=== PATIENT | female | born 1970 | race Caucasian/White ===

== ENCOUNTER 2020-01-28 07:33 | Day surgery (SDC) | payer OTHER ==
[~2020-01-28 07:33] MED LIST: ATORVASTATIN CA40 MG PO; CARVEDILOL12.5 MG PO; COZAAR50 MG PO; GLIPIZIDE5 MG PO; METFORMIN HCL500 MG PO
== END 2020-01-28 12:00 | disposition home or self-care (01) ==
LOC: AMB-ENDOS 07:33
PROVIDERS: ATTEND Surgery
DX: K62.89 Other specified diseases of anus and rectum (principal); Z20.828 Contact with and (suspected) exposure to other viral communicable diseases